=== PATIENT | male | born 1975 | race Caucasian/White ===

== ENCOUNTER 2017-11-03 20:05 | Emergency (ER) | payer OTHER ==
[~2017-11-03] VITALS: Ht 182.9 cm; Wt 70.8 kg
[2017-11-03 21:03] LABS: BASOPHIL (%) 0.3 % (0-1); EOSINOPHIL (%) 0.9 % (0-5); EOSINOPHIL COUNT 0.1 K/uL (0-0.3); HEMATOCRIT 28.8 % (38.0-50.0); HEMOGLOBIN 9.1 G/DL (12.5-16.6); IMMATURE GRANULOCYTE (%) 0.7 % (0.0-0.7); LYMPHOCYTE (%) 22.7 % (15-42); LYMPHOCYTE COUNT 2.9 K/uL (1.0-2.8); MCH 25.6 PG (29.0-34.0); MCHC 31.6 G/DL (30.0-36.0); MCV 81.1 FL (86-99); MONOCYTE (%) 6.5 % (3-12); MONOCYTE COUNT 0.8 K/uL (0-0.8); NEUTROPHIL (%) 68.9 % (45-76); NEUTROPHIL COUNT 8.8 K/uL (1.8-6.4); PLATELET COUNT 350 K/uL (156-360); RBC DIS.WIDTH-CV 15.6 % (11.8-14.6); RBC DIS.WIDTH-SD 46.1 % (39-53); RED BLOOD COUNT 3.55 M/uL (4.00-5.50); WHITE BLOOD COUNT 12.8 K/uL (4.1-10.2)
[2017-11-03 21:15] LABS: ALBUMIN 3.5 g/dL (3.2-4.8); CHLORIDE 109 mEq/L (99-109); POTASSIUM 3.7 mEq/L (3.7-5.4)
[2017-11-03 21:16] LABS: SODIUM 140 mEq/L (136-147)
[2017-11-03 21:18] LABS: GLUCOSE 97 mg/dL (70-99); TOTAL PROTEIN 8.5 g/dL (6.4-8.3)
[2017-11-03 21:20] LABS: TOTAL BILIRUBIN 0.2 mg/dL (0.0-1.0)
[2017-11-03 21:21] LABS: ALKALINE PHOSPHATASE 87 IU/L (3-129); CREATININE 0.8 mg/dL (0.6-1.3); GFR ESTIMATE (CALCULATED) > 59 mL/min/ (58.99-99999)
[2017-11-03 21:23] LABS: AST (GOT) 14 IU/L (2-34); UREA NITROGEN (BUN) 11 mg/dL (9-23)
[2017-11-03 21:24] LABS: ALT (GPT) 19 IU/L (3-49)
[2017-11-03 21:29] LABS: ERTH.SED.RATE 80 MM/HR (0-15)
[2017-11-03 21:49] LABS: C-REACTIVE PROTEIN < 1.0 MG/L (0-10)
[2017-11-03 23:32] LABS: APPEARANCE CLEAR ((CLEAR)); BILIRUBIN NEGATIVE; BLOOD NEGATIVE; COLOR STRAW ((YELLOW)); GLUCOSE (STRIP) NEGATIVE; KETONES NEGATIVE; LEUKOCYTES NEGATIVE; NITRITE NEGATIVE; PROTEIN (STRIP) NEGATIVE; UCUL ADDED? NO; UROBILINOGEN 0.2 MG/DL (0.2-1.0)
[2017-11-03] MEDS ORDERED: GABAPENTIN300 MG PO (23:38)
[2017-11-03] MEDS ORDERED: PERCOCET 10/1 TABLET PO (23:48)
[2017-11-03 23:56] VITALS: BP 151/99
== END 2017-11-03 23:58 ==
LOC: EME 20:05
PROVIDERS: Emergency Medicine
DX: M54.5 Low back pain (principal); M79.604 Pain in right leg; G89.29 Other chronic pain; Z87.39 Personal history of other diseases of the musculoskeletal system and connective tissue; D72.829 Elevated white blood cell count, unspecified; R70.0 Elevated erythrocyte sedimentation rate; Z98.1 Arthrodesis status; Z87.891 Personal history of nicotine dependence
CPT/HCPCS: 72132; 80053; 81003; 85025; 85651; 86140; 87040; 99281; 99285; J2270; J7030

== ENCOUNTER 2017-11-10 20:46 | Emergency (ER) | payer OTHER ==
[~2017-11-10] VITALS: Ht 182.9 cm; Wt 71.7 kg
[~2017-11-10 20:46] MED LIST: GABAPENTIN300 MG PO; PERCOCET 10/1 TABLET PO
[2017-11-10 21:30] LABS: BASOPHIL (%) 0.4 % (0-1); BASOPHIL COUNT 0.1 K/uL (0-0.1); EOSINOPHIL (%) 0.8 % (0-5); EOSINOPHIL COUNT 0.1 K/uL (0-0.3); HEMATOCRIT 29.7 % (38.0-50.0); HEMOGLOBIN 9.4 G/DL (12.5-16.6); IMMATURE GRANULOCYTE (%) 0.5 % (0.0-0.7); LYMPHOCYTE (%) 20.8 % (15-42); LYMPHOCYTE COUNT 3.1 K/uL (1.0-2.8); MCH 25.5 PG (29.0-34.0); MCHC 31.6 G/DL (30.0-36.0); MCV 80.5 FL (86-99); MONOCYTE (%) 7.7 % (3-12); MONOCYTE COUNT 1.1 K/uL (0-0.8); NEUTROPHIL (%) 69.8 % (45-76); NEUTROPHIL COUNT 10.4 K/uL (1.8-6.4); PLATELET COUNT 374 K/uL (156-360); RBC DIS.WIDTH-CV 15.4 % (11.8-14.6); RBC DIS.WIDTH-SD 45.1 % (39-53); RED BLOOD COUNT 3.69 M/uL (4.00-5.50); WHITE BLOOD COUNT 14.9 K/uL (4.1-10.2)
[2017-11-10 21:34] LABS: CHLORIDE 103 mEq/L (99-109); POTASSIUM 3.7 mEq/L (3.7-5.4); SODIUM 136 mEq/L (136-147)
[2017-11-10 21:36] LABS: GLUCOSE 89 mg/dL (70-99)
[2017-11-10 21:39] LABS: CREATININE 0.8 mg/dL (0.6-1.3); GFR ESTIMATE (CALCULATED) > 59 mL/min/ (58.99-99999)
[2017-11-10 21:40] LABS: UREA NITROGEN (BUN) 12 mg/dL (9-23)
[2017-11-11 06:53] VITALS: BP 125/73
== END 2017-11-11 06:57 | disposition short-term general hospital (02) ==
LOC: EME 20:46
PROVIDERS: Physician Assistant
DX: L03.312 Cellulitis of back [any part except buttock and flank] (principal); Z98.1 Arthrodesis status; Z98.890 Other specified postprocedural states; Z87.891 Personal history of nicotine dependence
CPT/HCPCS: 72157; 72158; 80048; 83605; 85025; 87040; 99281; 99285; J2270; J2543; J3010; J3370; J7050

== ENCOUNTER 2017-11-22 21:37 | Emergency (ER) | payer OTHER ==
[~2017-11-22] VITALS: Ht 182.9 cm; Wt 70.9 kg
[2017-11-22 22:56] LABS: HEMATOCRIT 29.8 % (38.0-50.0); HEMOGLOBIN 9.5 G/DL (12.5-16.6); MCH 26.3 PG (29.0-34.0); MCHC 31.9 G/DL (30.0-36.0); MCV 82.5 FL (86-99); PLATELET COUNT 373 K/uL (156-360); RBC DIS.WIDTH-CV 17.6 % (11.8-14.6); RBC DIS.WIDTH-SD 51.4 % (39-53); RED BLOOD COUNT 3.61 M/uL (4.00-5.50)
[2017-11-22 23:11] LABS: ALBUMIN 3.6 g/dL (3.2-4.8)
[2017-11-22 23:12] LABS: CHLORIDE 108 mEq/L (99-109); SODIUM 138 mEq/L (136-147)
[2017-11-22 23:14] LABS: GLUCOSE 106 mg/dL (70-99); TOTAL PROTEIN 7.9 g/dL (6.4-8.3)
[2017-11-22 23:16] LABS: TOTAL BILIRUBIN 0.2 mg/dL (0.0-1.0)
[2017-11-22 23:17] LABS: ALKALINE PHOSPHATASE 101 IU/L (3-129)
[2017-11-22 23:18] LABS: CREATININE 0.8 mg/dL (0.6-1.3); GFR ESTIMATE (CALCULATED) > 59 mL/min/ (58.99-99999)
[2017-11-22 23:19] LABS: AST (GOT) 18 IU/L (2-34); UREA NITROGEN (BUN) 15 mg/dL (9-23)
[2017-11-22 23:20] LABS: ALT (GPT) 37 IU/L (3-49)
[2017-11-22 23:21] LABS: LIPASE 38 U/L (1.0-51.0)
[2017-11-23 01:02] LABS: APPEARANCE CLEAR ((CLEAR)); BILIRUBIN NEGATIVE; BLOOD SMALL; COLOR YELLOW ((YELLOW)); GLUCOSE (STRIP) NEGATIVE; KETONES NEGATIVE; LEUKOCYTES NEGATIVE; NITRITE NEGATIVE; PROTEIN (STRIP) NEGATIVE; SPECIFIC GRAVITY 1.033 (1.000-1.030); UROBILINOGEN 0.2 MG/DL (0.2-1.0)
[2017-11-23 01:07] LABS: BACTERIA RARE /HPF; EPITHELIAL CELLS NONE SEEN /HPF; MUCUS NONE SEEN /LPF; RED BLOOD CELLS 0-5 /HPF (0-5); UCUL ADDED? NO; WHITE BLOOD CELLS NONE SEEN /HPF (0-5)
[2017-11-23 07:36] VITALS: BP 116/71
== END 2017-11-23 07:44 | disposition short-term general hospital (02) ==
LOC: EME → EDBD 21:37 → EME 21:37
PROVIDERS: Emergency Medicine
DX: T82.898A Other specified complication of vascular prosthetic devices, implants and grafts, initial encounter (principal); G89.29 Other chronic pain; M54.5 Low back pain; M86.9 Osteomyelitis, unspecified; D64.9 Anemia, unspecified; Z98.1 Arthrodesis status; Z87.891 Personal history of nicotine dependence
CPT/HCPCS: 71045; 72132; 80053; 81003; 83605; 83690; 85027; 99281; 99285; J2270; J7030

== ENCOUNTER 2018-01-06 21:43 | Emergency (ER) | payer OTHER ==
[~2018-01-06] VITALS: Ht 177.8 cm; Wt 79.8 kg
[2018-01-06 22:43] VITALS: BP 134/83
[2018-01-06 23:13] LABS: HEMATOCRIT 35.1 % (38.0-50.0); HEMOGLOBIN 11.4 G/DL (12.5-16.6); MCH 26.5 PG (29.0-34.0); MCHC 32.5 G/DL (30.0-36.0); MCV 81.4 FL (86-99); PLATELET COUNT 201 K/uL (156-360); RBC DIS.WIDTH-CV 17.2 % (11.8-14.6); RBC DIS.WIDTH-SD 51.1 % (39-53); RED BLOOD COUNT 4.31 M/uL (4.00-5.50)
[2018-01-06 23:25] LABS: CHLORIDE 105 mEq/L (99-109); POTASSIUM 3.9 mEq/L (3.7-5.4); SODIUM 139 mEq/L (136-147)
[2018-01-06 23:27] LABS: GLUCOSE 84 mg/dL (70-99)
[2018-01-06 23:31] LABS: CREATININE 0.9 mg/dL (0.6-1.3); GFR ESTIMATE (CALCULATED) > 59 mL/min/ (58.99-99999)
[2018-01-06 23:32] LABS: UREA NITROGEN (BUN) 11 mg/dL (9-23)
[2018-01-06 23:52] LABS: C-REACTIVE PROTEIN 1.2 MG/L (0-10)
[2018-01-07 00:28] LABS: ERTH.SED.RATE 87 MM/HR (0-15)
== END 2018-01-07 04:09 | disposition short-term general hospital (02) ==
LOC: EME → EDBD 21:43 → EME 21:43
PROVIDERS: Emergency Medicine
DX: T81.4XXA Infection following a procedure, initial encounter (principal); M86.9 Osteomyelitis, unspecified; Z98.1 Arthrodesis status; Z87.891 Personal history of nicotine dependence
CPT/HCPCS: 72132; 80048; 83605; 85027; 85652; 86140; 87040; 99281; 99285; J2543